=== PATIENT | female | born 1990 | race Caucasian/White ===

== ENCOUNTER → 2023-10-09 09:30 | Outpatient (CLI) | payer OTHER, MEDICAID, SELFPAY ==
--- NOTE | 2023-10-09 09:34 | DI.RAD.S_ITS ---
PROCEDURE: FL BARIUM SWALLOW W SPEECH INDICATIONS: ESOPHAGEAL DISORDER COMPARISON: None. TECHNIQUE: Examination was conducted in conjunction with speech pathology per standard protocol. In the lateral projection, filming was performed of the patient swallowing. AP projection filming may also be performed with patient swallowing. COMPARISON: FINDINGS: Function: The oral preparatory phase appears normal, with proper containment. The subsequent oral propulsive phase, pharyngeal phase, and esophageal phase of swallowing also appear normal with all proffered substances. No laryngotracheal penetration or aspiration. No pathologic vallecular pooling. Morphology: No cricopharyngeal bar is identified. No cervical esophageal webs. No Zenker's diverticulum. No strictures. Visualized portions of the esophagus demonstrate contrast stacking. IMPRESSION: No aspiration or penetration Suspected moderate to severe esophageal dysmotility. Please see speech pathologist's notes and recommendations. Dictated by: Isaiah Angela M.D. on 10/09/2023 at 14:39 Approved by: Isaiah Angela M.D. on 10/09/2023 at 14:40
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
== END ==
LOC: RAD 09:33
PROVIDERS: Referring Provider Internal Medicine; Visit Provider Internal Medicine
DX: K22.9 Disease of esophagus, unspecified (principal)
CPT/HCPCS: 74230; 92610